=== PATIENT | male | born 1990 | race Caucasian/White ===

== ENCOUNTER 2020-04-12 14:30 | Emergency (ER) | payer MEDICAID, SELFPAY ==
[2020-04-12 14:32] VITALS: BP 133/67; PULSE 73; RESP 16; TEMP 36.3; O2SAT 100; BMI 23.7
--- NOTE | 2020-04-12 14:46 | CT_ITS ---
PROCEDURE: CT LUMBAR SPINE WO CON CLINICAL HISTORY: LBP radiating to R.buttock COMPARISON: No exams were available for comparison TECHNIQUE: Axial images obtained with sagittal and coronal reformats. All CT scans at the facility use one or more dose reduction, viz: automated exposure control, ma/kV adjustment per patient size (including targeted exams where dose is matched to indication, i.e. head), or iterative reconstruction technique. FINDINGS: There is some straightening of the normal curvature at the thoracolumbar junction. L1 through L5 appear intact. Disc spaces are well maintained throughout. The spinal canal is normal in size. There is a small broad-based right paracentral and central disc protrusion L5-S1. This causes mild narrowing of the neural foramina bilaterally at this level. The SI joints appear normal. There are no hypertrophic facet changes. IMPRESSION: Findings of mild muscle spasm thoracolumbar junction along with a small central right paracentral disc protrusion L5-S1 Dictated by: Dr. Tre Lala MD 04/12/2020 15:[address] Tre Lala MD in [place] 04/12/2020 15:32
--- NOTE | 2020-04-12 14:47 | [facility].EDBACK ---
ED Disposition Clinical Impression: Lumbar radiculopathy Disposition: Home, Self-Care Condition on Discharge: Good Instructions: DI for Low Back Pain Prescriptions: Cyclobenzaprine HCl [Cyclobenzaprine 5mg Tab] 5 mg PO Q8HP PRN #30 tab PRN Reason: pain/spasm methylPREDNISolone [Medrol] 4 mg PO DIRECTED #21 pack Ketorolac Tromethamine [Toradol 10mg tablet] 10 mg PO Q6H 5 Days #20 tablet Referrals: PCP,No [Primary Care Provider] - - Critical Care Critical Care Time: No Attestation: On , the high probability of a clinically significant, sudden or life threatening deterioration of the following system(s) required my full and direct attention, intervention and personal management. The time I documented below is in addition to time spent performing reported procedures but includes the following listed in this critical care notation. Medical Decision Making - Medical Records Medical records reviewed: Yes: I reviewed the patient's medical records. - Archie Inquiry Pt receiving controlled substance: No Vital Signs: 04/12/20 14:32 Temperature 97.3 F L Temperature Source Oral Pulse Rate [Left Radial] 73 Respiratory Rate 16 Blood Pressure [Right Arm] 133/67 Blood Pressure Mean [Right Arm] 89 Blood Pressure Position [Right Arm] Sitting 02 Sat by Pulse Oximetry 100 Oxygen Delivery Method Room Air Orders (Tests/Meds): ED MEDICATIONS Discontinued Medications Generic Name Dose Route Start Last Admin Trade Name Freq PRN Reason Stop Dose Admin Ketorolac Tromethamine 60 mg 04/12/20 14:47 Toradol 60mg/2ml Vial IM 04/12/20 14:48 ONCE ONE Orphenadrine Citrate 60 mg 04/12/20 14:47 Norflex 60mg/2ml Vial IM 04/12/20 14:48 ONCE ONE ORDERS Category Date Time Status CT lumbar spine wo con Stat Cat Scan 04/12/20 14:46 Taken - CT Data CT Scan: L-Spine Time Received: 15:[address] Reviewed: Yes: I have reviewed the patient's CT results Findings Narrative: multi-level DDD; w/ mild central protrusion Back Pain HPI - General Chief Complaint: Back Pain/Injury Stated Complaint: back pain Time Seen by Provider: 04/12/20 14:47 Mode of Arrival: Ambulatory Source of Information: Patient Limitations: No Limitations Description of Symptoms (Recalled from ER Triage Doc. by RN): to ed per pvt car with c/o lower back pain radiating lt leg x 3 days. pt denies any injury - History of Present Illness HPI Narrative: This a 30-year-old male presents the emergency department with 2-day history of low back pain now radiating down the back of the right lower extremity to the buttock. Pain is sharp constant radiating as above. Movement in flexion and extension exacerbate his pain. Pain rated at 7 out of 10 in intensity and is worsened with movement as above. No noted injury MD Complaint: back pain Onset (ago): day(s) (2d) - Related Data Previous Rx's Medication Instructions Recorded Cyclobenzaprine HCl 5 mg PO Q8HP PRN #30 tab 04/12/20 [Cyclobenzaprine 5mg Tab] Ketorolac Tromethamine [Toradol 10 mg PO Q6H 5 Days #20 tablet 04/12/20 10mg tablet] methylPREDNISolone [Medrol] 4 mg PO DIRECTED #21 pack 04/12/20 Allergies Allergy/AdvReac Type Severity Reaction Status Date / Time No Known Allergies Allergy Verified 04/12/20 15:11 [facility] History - Hepatitis A Screen Drug use history?: No High risk sexual behaviors?: No History of sexually transmitted infection?: No Currently employed?: No Childcare worker?: No Do you have indoor plumbing?: Yes Do you have electricity?: Yes Attestation statement:: This patient has been screened for Hepatitis A risk factors. I have reviewed the patient's past medical history: Yes Other Surgeries: Yes: No Previous Surgery - Social History Smoking Status: Current every day smoker Tobacco Type: cigarettes # Packs/Day (cigarettes): 0 Alcohol Intake: never Occupational Status: other Housing: other Household Members: o
--- NOTE | 2020-04-12 14:54 | PC.NURSE ---
Pt to rad
--- NOTE | 2020-04-12 15:03 | PC.NURSE ---
Pt returned from rad.
[2020-04-12 15:45] VITALS: BP 133/67; PULSE 73; RESP 16; TEMP 36.3; O2SAT 100
== END 2020-04-12 15:46 | disposition home or self-care (01) ==
PROVIDERS: Emergency Provider Emergency Medicine
DX: M54.16 Radiculopathy, lumbar region (principal); F17.210 Nicotine dependence, cigarettes, uncomplicated
CPT/HCPCS: 72131; 96372; 99282